=== PATIENT | male | born 1990 | race Caucasian/White ===

== ENCOUNTER 2020-05-25 12:06 | Emergency (ER) | payer OTHER ==
[~2020-05-25] VITALS: Ht 167.6 cm; Wt 70.3 kg
[~2020-05-25 12:06] MED LIST: AMOXICILLIN500 M1 PO; KEFLEX500 MG PO; ZOFRAN4 MG PO
[2020-05-25 13:48] LABS: ABSOLUTE NEUTROPHILS 5.1 thou/uL (1.4-8.2); BASOPHILS 1.4 % (0.0-2.0); HEMATOCRIT 43.2 % (42.0-52.0); LYMPHOCYTES 17.4 % (24.0-44.0); MCH 31.1 pg (26.0-34.0); MCHC 34.8 g/dL (28.0-37.0); MCV 89.4 fL (80.0-100.0); MONOCYTES 9.5 % (1.0-8.0); PLATELET COUNT 343 thou/uL (150-400); POLYS 68.7 % (36.0-66.0); RBC 4.83 mil/uL (4.50-6.00); RDW 13.7 % (10.5-14.5); WBC 7.4 thou/uL (4.0-11.0)
[2020-05-25 13:58] LABS: CALCIUM 8.9 mg/dL (8.5-10.1); POTASSIUM 3.9 mmol/L (3.5-5.1)
[2020-05-25 14:05] LABS: ALBUMIN 4.5 g/dL (3.4-5.0); TOTAL BILIRUBIN 0.8 mg/dL (0.2-1.0); TOTAL PROTEIN 8.3 g/dL (6.4-8.2)
[2020-05-25] MEDS ORDERED: PREDNISONE 20 M20 MG PO (15:59)
[2020-05-25] MEDS ORDERED: AUGMENTIN 875-1 EACH PO (15:59)
[2020-05-25 16:31] VITALS: BP 138/79
== END 2020-05-25 16:33 | disposition home or self-care (01) ==
LOC: ER 12:06
PROVIDERS: Nurse Practitioner Family
DX: J06.9 Acute upper respiratory infection, unspecified (principal); Z20.822 Contact with and (suspected) exposure to COVID-19; Z88.1 Allergy status to other antibiotic agents; Z88.8 Allergy status to other drugs, medicaments and biological substances; Z90.89 Acquired absence of other organs

== ENCOUNTER 2020-09-03 05:35 | Emergency (ER) | payer OTHER ==
[~2020-09-03] VITALS: Ht 172.7 cm; Wt 86.2 kg
[~2020-09-03 05:35] MED LIST changes: +AUGMENTIN 875-1 EACH PO; +PREDNISONE 20 M20 MG PO
[2020-09-03 06:11] LABS: ABSOLUTE NEUTROPHILS 3.9 thou/uL (1.4-8.2); EOSINOPHILS 3.7 % (0.0-3.0); HEMATOCRIT 42.8 % (42.0-52.0); HEMOGLOBIN 14.5 gm/dL (14.0-18.0); LYMPHOCYTES 21.5 % (24.0-44.0); MCHC 33.8 g/dL (28.0-37.0); MCV 88.7 fL (80.0-100.0); MONOCYTES 10.9 % (1.0-8.0); PLATELET COUNT 347 thou/uL (150-400); POLYS 62.9 % (36.0-66.0); RBC 4.83 mil/uL (4.50-6.00); WBC 6.2 thou/uL (4.0-11.0)
[2020-09-03 06:21] LABS: CALCIUM 9.2 mg/dL (8.5-10.1); CREATININE 1.1 mg/dL (0.7-1.3)
[2020-09-03 06:26] LABS: ALBUMIN 4.3 g/dL (3.4-5.0); TOTAL BILIRUBIN 0.4 mg/dL (0.2-1.0); TOTAL PROTEIN 7.7 g/dL (6.4-8.2)
[2020-09-03] MEDS ORDERED: ZOFRAN ODT4 MG PO (07:45)
[2020-09-03 07:57] VITALS: BP 135/72
== END 2020-09-03 07:57 | disposition home or self-care (01) ==
LOC: ER 05:35
PROVIDERS: Emergency Medicine
DX: E86.0 Dehydration (principal); R11.2 Nausea with vomiting, unspecified; R19.7 Diarrhea, unspecified; K08.89 Other specified disorders of teeth and supporting structures; Z90.89 Acquired absence of other organs; Z88.6 Allergy status to analgesic agent; Z88.1 Allergy status to other antibiotic agents; Z20.822 Contact with and (suspected) exposure to COVID-19

== ENCOUNTER 2020-10-15 06:21 | Emergency (ER) | payer OTHER ==
[~2020-10-15] VITALS: Ht 172.7 cm; Wt 86.2 kg
[~2020-10-15 06:21] MED LIST changes: +ZOFRAN ODT4 MG PO
[2020-10-15 06:23] VITALS: BP 137/90
[2020-10-15] MEDS ORDERED: [UNRECOGNIZED DRUG - REMARK] (06:28)
== END 2020-10-15 07:21 | disposition home or self-care (01) ==
LOC: ER 06:21
PROVIDERS: Student in an Organized Health Care Education/Training Program
DX: J06.9 Acute upper respiratory infection, unspecified (principal); Z20.822 Contact with and (suspected) exposure to COVID-19; Z90.89 Acquired absence of other organs; Z88.1 Allergy status to other antibiotic agents

== ENCOUNTER 2021-01-16 21:41 | Emergency (ER) | payer OTHER ==
[~2021-01-16] VITALS: Ht 172.7 cm; Wt 95.3 kg
[~2021-01-16 21:41] MED LIST changes: +[UNRECOGNIZED DRUG - REMARK]
[2021-01-16 21:58] VITALS: BP 138/83
== END 2021-01-16 22:50 | disposition home or self-care (01) ==
LOC: ER 21:41
PROVIDERS: Student in an Organized Health Care Education/Training Program
DX: R53.83 Other fatigue (principal); Z20.822 Contact with and (suspected) exposure to COVID-19; Z90.89 Acquired absence of other organs; Z79.899 Other long term (current) drug therapy; Z88.1 Allergy status to other antibiotic agents; Z88.8 Allergy status to other drugs, medicaments and biological substances

== ENCOUNTER 2021-01-23 15:55 | Emergency (ER) | payer OTHER ==
[~2021-01-23] VITALS: Ht 172.7 cm; Wt 95.3 kg
[2021-01-23 19:41] VITALS: BP 134/74
--- NOTE | 2021-01-23 23:19 | NUR ---
PATIENT TESTED COVID +, RESULTS CALLED TO LEIGHTON MONTERROSO. THIS NURSE CALLED PATIENT TO INFORM HIM OF RESULTS NOW. PATIENT AWARE, NO OTHER QUESTIONS OR CONCERNS AT THIS TIME
== END 2021-01-23 19:42 | disposition home or self-care (01) ==
LOC: ER 15:55
PROVIDERS: Emergency Medicine
DX: U07.1 COVID-19 (principal); Z90.89 Acquired absence of other organs; Z79.899 Other long term (current) drug therapy; Z88.1 Allergy status to other antibiotic agents; Z88.8 Allergy status to other drugs, medicaments and biological substances